=== PATIENT | female | born 1980 | race Caucasian/White ===

== ENCOUNTER → 2018-01-11 09:44 | Outpatient (CLI) | payer MEDICAID, SELFPAY ==
--- NOTE | 2018-01-11 09:46 | RAD_ITS ---
STUDY: X-RAY - LEFT KNEE REASON FOR EXAM: Knee pain, no specific injury. TECHNIQUE: 5 view(s) of the knee. COMPARISON: None. FINDINGS: Normal visualized distal femur. Normal visualized proximal tibia and fibula. Normal proximal tibiofibular articulation. Normal medial femorotibial compartment. Normal lateral femorotibial compartment. Normal patellofemoral articulation. The soft tissue structures are unremarkable. RAD/Knee 4 or More Views IMPRESSION: Unremarkable x-ray examination of the left knee. Electronically Signed: Jenaro Alvarez MD at 10:10 EDT Tel , Service support ,
== END ==
PROVIDERS: Visit Provider Orthopaedic Surgery
DX: M25.562 Pain in left knee (principal)
CPT/HCPCS: 73564

== ENCOUNTER 2018-02-17 10:30 | Outpatient (RCR) | payer MEDICAID, SELFPAY ==
--- NOTE | 2018-01-12 11:55 | HP.PTEVAL_ITS ---
Patient's Visit Information MELCHOR ALCANTAR is a 37 year old F referred to Physical Therapy by Melissa Whittington DO with a diagnosis of LEFT KNEE OA -PF JOINT. Date of Evaluation: 01/12/18 Physical Therapist: Wale Villalobos PT, - Visit Plan Frequency: 2x /Week Duration: 4 Weeks Plan: Aquatic PT for ROM, strength quads/hams ,flexablity - Subjective Subjective: This 37 y/o female presents to physical therapy with left knee OA - PF joint. Patient has had knee pain for many years.Symptoms worse in past 2weeks ,then Patient [facility] to [facility] reommended ortho consult. Recommended Aquatic PT.Did x-rays showed OA.Patient has pain with walking,standing, one step at a time.Patient unable kneeling,squatting.Pain affects sleeping. Denies parathesia/tingling. Pain affects quality of life and function. SOCAIL: 4 children special needs. VOCATION: homemaker - Pain Left Knee Pain Intensity (Out of 10): 6 Pain Intensity Range: 10 - Objective POSTURE: left knee flexed , valgus knee.genu recurvatum. GAIT: ambulates with decrease stance time swing phase during gait cycle. NEURO: denies parathesia/ tingling, reflexes inact. PALAPTION: medial joint line greater than lateral joint line. MMT:left 3+/5 quads,4-/5 ,hip flex/abd 3+/5,ankle 4/5,right 4/5 except hip 4-/5. AROM: LEFT flexion 20-52 degrees supine knee flexion,RIGHT 5- 120 degrees. FLEXABLITY: hams mod tight - Special Tests L Knee Mey - Meniscus: Positive L Knee Valgus - MCL: Positive L Knee Varus - LCL: Positive L Knee Patellar Apprehension - PFS: Positive L Knee Patellar Grind - PFS: Positive - Goals Goal 1:: Independant with Aquatic PT Goal Time Frame: 4-6 Weeks Goal 2:: Decrease knee pain by 40-50% to improve gait and function. Goal Time Frame: 4-6 Weeks Goal 3:: Patient to improve AROM knee 10-100 degrees or greater to improve function Goal Time Frame: 4-6 Weeks Goal 4:: Patient improve strength quads/hams 4-/5 to improve function Goal Time Frame: 4-6 Weeks Goal 5:: Patient improve quality of gait with swing phase stance time during gait cycle with less antalgic gait 80% of the time - Rehabilitation Potential Physical Therapy Diagnosis: This patient has left knee pain possible meniscus - patellofemoral dysfunction with pain poor ROM ,decrease strength ,impairs gait and walking thus benifit from skilled PT Rehabilitation Potential: Good - Anticipated Interventions Patient/Client Instruction: Educate patient on: Condition, Plan of Care For the Purpose of:: To decrease pain, To increase ROM, To improve muscle performance and motor function, To increase tolerance to activity/condition/ position, To improve ability of physical actions for home/community/work/leisure , To improve gait and locomotor functions, To improve health of tissue, To decrease soft tissue restriction, To increase flexibility/ROM, To improve ability to perform tasks related to life management Therapeutic Exercise to Include: Strength training, Flexibilty training, Gait and locomotor training, In an aquatic setting, Passive ROM, Active ROM For the Purpose of:: To decrease pain, To increase ROM, To improve muscle performance and motor function, To increase tolerance to activity/condition/ position, To improve ability of physical actions for home/community/work/leisure , To improve gait and locomotor functions, To improve health of tissue, To decrease soft tissue restriction, To increase flexibility/ROM, To improve ability to perform tasks related to life management Thank you for the opportunity to evaluate your patient. For Medicare and Medicare HMO plans, please review the plan of care and approve it. It will need to be FAXED BACK to us at [phone] for Medicare purposes. Please let me know if there are questions or concerns regarding this plan of care. Physician Signature: Date:
--- NOTE | 2018-02-17 10:57 | HP.PTDCSUM_ITS ---
HP - PT D/C Summary It has been my pleasure to treat MELCHOR Falcon VIA under orders from Melissa Whittington DO, for the diagnosis of LEFT KNEE OA -PF JOINT for a total of 8 visit(s). Discharge Date: Please see the following information for a summary of their discharge status. - Subjective Subjective: Doing alot better..Able to do stairs . Extended walking ,housework , difficulty with squatting,unable to kneeling. - Pain Left Knee Pain Intensity (Out of 10): 0 - Overall Improvement % Improvement: 90 - Objective Objective/Function: POSTURE: genu recurvatum ,knee valgus. GAIT: ambulates with normla ayanna. STAIR: ascend/descend 12 steps alternating. AROM: 0-110 supine knee flexion. MMT: quads/hams 5/5 ,hip 4/5 ankle 4/5 - Goals Goal 1:: Independant with Aquatic PT Goal 2:: Decrease knee pain by 40-50% to improve gait and function. Goal 3:: Patient to improve AROM knee 10-100 degrees or greater to improve function Goal 4:: Patient improve strength quads/hams 4-/5 to improve function Goal 5:: Patient improve quality of gait with swing phase stance time during gait cycle with less antalgic gait 80% of the time - Plan Plan: d/c - D/C Information If there are questions or concerns regarding this patient's physical therapy, please feel free to call me at [phone]. Thank you for the referral of this patient. Sincerely, Wale Villalobos, PT,
== END 2018-02-17 19:00 | disposition home or self-care (01) ==
LOC: PT 10:30
PROVIDERS: Visit Provider Orthopaedic Surgery
DX: M17.12 Unilateral primary osteoarthritis, left knee (principal)
CPT/HCPCS: 97113; 97162; 97530

== ENCOUNTER 2019-05-01 09:22 | Emergency (ER) | payer MEDICAID, SELFPAY ==
[2019-04-30 13:47] VITALS: BMI 61.4
[2019-05-01 09:23] VITALS: BP 156/85; PULSE 92; RESP 20; TEMP 36.1; O2SAT 98; BMI 62.8
[2019-05-01 09:41] VITALS: PULSE 84; RESP 20
[2019-05-01] MEDS: Albuterol 2.5 MG/3 ML VIAL.NEB. INHALATION (09:41)
[2019-05-01] MEDS: Ipratropium/Albuterol Sulfate 3 ML AMPUL.NEB INHALATION (09:41)
--- NOTE | 2019-05-01 09:59 | CPS ---
Albuterol tx given as well
--- NOTE | 2019-05-01 10:02 | RAD_ITS ---
STUDY: X-RAY CHEST REASON FOR EXAM: Female, 38 years old. Dyspnea. Chest tightness and cough. TECHNIQUE: PA and lateral views of the chest. COMPARISON: Comparison is made with prior study dated September 16, 2008. FINDINGS: The lungs are clear and expanded. There is no demonstrated pleural abnormality. There is mild cardiac enlargement. Normal mediastinum and waqas. Normal visualized pulmonary arteries. Normal visualized aortic arch and descending thoracic aorta. Normal visualized thoracic spine. Normal visualized ribs, clavicles, and shoulders. There is no demonstrated abnormality of the visualized soft tissue structures of the upper abdomen. RAD/Chest PA and Lateral IMPRESSION: Mild cardiomegaly. Electronically Signed: Anil Kimble, at 10:28 EDT , Service support ,
--- NOTE | 2019-05-01 10:17 | ED.VISSUMM ---
- ER Visit Summary Date of Service: 05/01/19 Chief Complaint: Dyspnea History of Present Illness: The patient is a 38 F who states that for the past 3 days she has had a cough. She developed dyspnea on exertion and at rest. She went to urgent care and was diagnosed with clinical pneumonia yesterday. She was started on albuterol Amoxil 5 twice daily and steroids. She was advised that if she did not get better to come to the emergency room. Less than 24 hours later she states she is feeling worse. She notes a subjective fever but states every time she is taken her temperature is been normal. Cough is nonproductive. She denies a history of smoking asthma or other lung conditions. Physical Examination: Afebrile vital signs are stable Gen: Well-nourished well-developed Head: Normocephalic atraumatic Eyes: Perrl EOMI ENT: TMs clear no rhinorrhea moist mucous membranes no stridor Neck: Supple no lymphadenopathy no JVD nontender CVS: Regular rate rhythm no murmurs normal S1-S2 Respiratory: No distress patient has expiratory wheeze and rhonchi bilaterally chest nontender Abdomen: Soft nontender nondistended normal bowel sounds no masses Back: Nontender Extremity: Nontender no edema Skin: Normal color no rash Neuro: alert orientated ?3 CN II-XII intact normal strength sensation reflexes gait cerebellar Psych: Normal affect normal mood Test Results: Chest x-ray showed no infiltrates. Emergency Department Course and Treatment: Patient received breathing treatments. She is ambulating the department. Pulse ox remained at 91%. Wheezing is improved. I am going to have the patient increase her prednisone to 60 mg a day. The prescription yesterday was written for an albuterol MDI 2 puffs every 6 hours with spacer. She states that she did not receive a spacer. The patient was instructed she may take 2 to 3 puffs every 2-3 hours using spacer. Patient notes understanding of her plan return if worsening or concerns Impression: 1. Acute bronchitis with bronchospasm This note was generated with [employer] dictation software. It may contain incorrect words, spelling, and punctuation that were not noted in review of the chart prior to signing ED Disposition - Plan for ED Patient: Disposition: Home or Assisted Living Instructions: BRONCHITIS with Wheezing (Adult) Prescriptions: Prednisone [Deltasone] 60 mg PO DAILY #9 tab Prescription Printed Referrals: Sophie Campbell MD [STAFF PHYSICIAN] - As Needed Additional Instructions: I would recommend you increase your prednisone to 60 mg a day (3 tablets/day) I would recommend you increase your albuterol MDI use to 2 to 3 puffs every 2 hours with spacer.
[2019-05-01 10:45] VITALS: O2SAT 98
[2019-05-01 11:50] VITALS: RESP 18
[2019-05-01 12:17] VITALS: RESP 20; O2SAT 98
== END 2019-05-01 12:19 | disposition home or self-care (01) ==
PROVIDERS: Emergency Provider Emergency Medicine
DX: J20.9 Acute bronchitis, unspecified (principal); J18.9 Pneumonia, unspecified organism; E66.9 Obesity, unspecified
CPT/HCPCS: 71046; 94640; 99282

== ENCOUNTER 2020-09-08 14:20 | Emergency (ER) | payer MEDICAID, SELFPAY ==
[2020-09-08 14:21] VITALS: BP 154/102; PULSE 85; RESP 16; TEMP 36.7; BMI 66.7
--- NOTE | 2020-09-08 14:39 | RAD_ITS ---
STUDY: X-RAY - LEFT KNEE REASON FOR EXAM: Female, 40 years old. INJURY TECHNIQUE: 4 views(s) of the knee. COMPARISON: None. FINDINGS: No evidence for acute fractures or dislocation. Spurring in the knee joint. Small knee joint effusion. Fibular head neck junction appears intact. IMPRESSION: Degenerative arthritis of the knee joint. No evidence for acute fractures. Electronically Signed: Alfonzo Roldan, at 15:42 EST Tel , Service support , RAD/Knee 4 or More Views
--- NOTE | 2020-09-08 14:39 | CT_ITS ---
STUDY: CT BRAIN WITHOUT CONTRAST REASON FOR EXAM: Female, 40 years old. Trauma and pain RADIATION DOSAGE (If Supplied By Facility): CTDIvol = ( 44.99 ) mGy, DLP = ( 779.24 ) mGycm TECHNIQUE: Transaxial CT imaging of the brain was performed without administration of intravenous contrast material. Individualized dose optimization techniques were used for this CT. COMPARISON: No relevant priors. FINDINGS: Normal soft tissue structures. Normal calvarium. Normal size ventricles and extra-axial spaces for the patient''s age. Normal white matter tracts of the cerebral hemispheres. Normal basal ganglia and thalami. Normal brainstem. Normal cerebellum. There is no intracranial hemorrhage. There are no findings of an acute ischemic infarction. Mucous retention cyst in the maxillary sinuses. CT/Brain/Head without Contrast IMPRESSION: No acute intracranial findings. Electronically Signed: Alfonzo Roldan, at 15:08 EST Tel , Service support ,
--- NOTE | 2020-09-08 14:39 | EKG12_ITS ---
Test Reason : SYNCOPE Blood Pressure : / mmHG Vent. Rate : 084 BPM Atrial Rate : 084 BPM P-R Int : 178 ms QRS Dur : 092 ms QT Int : 382 ms P-R-T Axes : 045 034 040 degrees QTc Int : 451 ms Normal sinus rhythm Normal ECG Confirmed by ROSALVA JUAREZ, JEREMIAH ([id number]), editor publications MUNIRA SCHUMACHER ([id number]) on 09/11/2020 9:35:23 AM Referred By: GIO/CHRISTIAN Confirmed By:JEREMIAH BLACKWELL MD
--- NOTE | 2020-09-08 14:39 | RAD_ITS ---
STUDY: X-RAY - LEFT RADIUS AND ULNA REASON FOR EXAM: Female, 40 years old. INJURY TECHNIQUE: 2 view(s) of the forearm. COMPARISON: None. FINDINGS: 2 views of the left forearm demonstrate no evidence for acute fractures or dislocation. The radiologists and the elbow appear intact. IMPRESSION: No evidence for acute radial or ulnar fractures Electronically Signed: Alfonzo Roldan, at 15:37 EST Tel , Service support , RAD/Forearm 2 Views
--- NOTE | 2020-09-08 14:39 | RAD_ITS ---
STUDY: X-RAY CHEST REASON FOR EXAM: Female, 40 years old. SYNCOPE TECHNIQUE: 2 views of the chest was obtained COMPARISON: None. FINDINGS: No consolidative process, pleural effusion or pneumothorax. Cardiac size slightly prominent. Degenerative changes of the thoracic spine with mild wedging of the thoracic vertebrae. IMPRESSION: Minimal pulmonary congestion. No consolidative process or pneumothorax Electronically Signed: Alfonzo Roldan, at 15:34 EST Tel , Service support , RAD/Chest PA and Lateral
--- NOTE | 2020-09-08 14:41 | ED.VIS.GEN ---
History of Present Illness Chief Complaint: Syncope Informant: Patient Narrative: 40-year-old female states that at [address] was on her way to the bathroom to vomit due to her acid reflux. She states she does not remember falling but her heard her fall and the next thing she remembers is waking up against the wall. She notes pain to the left side of her face and a bruised lower left lip. She notes pain to the left wrist and hematoma to the left forearm. She also notes left knee pain. After the fall she got back into bed slept took some Aleve slept some more and now presents the emergency department for evaluation. - Past Medical History (1) Obesity Status: Acute Past Medical History - Allergies and Home Meds Allergies/Adverse Reactions: Allergies guaifenesin [From Robitussin] Adverse Reaction (Verified 09/08/20 14:21) Unknown morphine Adverse Reaction (Verified 09/08/20 14:21) Upset Stomach Primary Care Physician: Care Physician,No Primary [Primary Care Provider] - Prior records reviewed: Yes Surgical History: noncontributory Lives: Spouse/ Significant Other, With Family Smoking Status: Never smoker Drugs: None Review of Systems General: Denies: Chills, Fever, Sweats Eyes: Denies: Visual changes - bilaterally, Diplopia ENT: Reports: - - Left facial pain. Denies: Rhinorrhea, Sore throat Cardiovascular: Denies: Chest pain, Palpitations Respiratory: Denies: Dyspnea, Cough, Dyspnea on exertion Gastrointestinal: Denies: Abdominal pain, Nausea, Vomiting, Diarrhea, Melena, Hematochezia Genitourinary: Denies: Dysuria, Hematuria, Frequency Musculoskeletal: Reports: Extremity Pain. Denies: Back pain Skin: Denies: Rash, Wounds Neurological: Denies: Headache, Weakness, Numbness Physical Exam Vital Signs/Narrative: Vital Signs Temp Pulse Resp BP 09/08/20 14:21 98.0 F 85 16 154/102 H Inital Vital Signs reviewed: Yes General: Well nourished, Well developed, Obese, No Acute Distress Head: Normocephalic, - - There is a contusion to the left cheek. There is a small contusion to the left lower lip. Eyes: Perrl, EOMI ENT: Moist mucous membranes, No rhinorrhea, - - No dental trauma. No malocclusion. No tenderness along the mandible. Neck: Supple, Nontender Cardiovascular: Regular rate, Regular rhythm, No murmurs Respiratory: No distress, CTA bilaterally, Chest nontender Abdomen: Soft, Nontender, Nondistended, Normal bowel sounds Back: Nontender, Normal Inspection Extremities: No edema, Tenderness - There is a small hematoma on the posterior left forearm. Tenderness at the left wrist. Tenderness about the left knee. Ligaments appear stable. Skin: Normal color, No rash Neurological: Alert, Oriented x3, Cranial nerves II-XII grossly intact, Normal Strength, Normal Sensation Psychological: Normal affect, Normal Mood Diagnostic/Tx/Re-eval Clinical Impression(s) from Imaging Studies Brain CT 09/08/20 14:39 IMPRESSION: No acute intracranial findings. Electronically Signed: Alfonzo Roldan, at 15:08 EST Tel , Service support , - EKG Initial EKG Interpretation: Sinus Rhythm - Normal sinus rhythm at a rate of 84 without ectopy or concerning features of ACS. - Medical Decision Making My interpretation of the plain films of the left knee, left forearm, and chest is no acute disease. Radiology agrees with no fractures. Patient's head CT is negative. Patient will be discharged home. Tylenol Motrin as needed for pain. I believe she most likely had a vagal reaction as she was headed to the bathroom to vomit. ED Disposition - Plan for ED Patient: Disposition: Home or Assisted Living Diagnosis: Syncope, Contusion of left wrist, Facial contusion, Contusion of left knee Instructions: ED Soft Tissue Contusion, ED Fainting, Vagal Reaction Referrals: Care Physician,No Primary [Primary Care Provider] - Additional Instructions: Follow-up with primary care as needed or if not improving.
[2020-09-08 15:31] VITALS: PULSE 88; RESP 17; O2SAT 94
== END 2020-09-08 15:33 | disposition home or self-care (01) ==
LOC: ED 15:13
PROVIDERS: Emergency Provider Emergency Medicine
DX: R55 Syncope and collapse (principal); S00.83XA Contusion of other part of head, initial encounter; S50.12XA Contusion of left forearm, initial encounter; S60.212A Contusion of left wrist, initial encounter; S80.02XA Contusion of left knee, initial encounter; S00.531A Contusion of lip, initial encounter; W19.XXXA Unspecified fall, initial encounter; Y93.9 Activity, unspecified; Y92.9 Unspecified place or not applicable; E66.9 Obesity, unspecified
CPT/HCPCS: 70450; 71046; 73090; 73564; 93005; 99282

== ENCOUNTER 2021-12-06 17:00 | Emergency (ER) | payer MEDICAID, SELFPAY ==
[2021-12-06 17:00] VITALS: BP 186/98; PULSE 89; RESP 18; TEMP 36.6; O2SAT 97; BMI 67.3
--- NOTE | 2021-12-06 17:15 | EDS_ITS ---
HPI History of Present Illness Chief Complaint: Dental Informant: patient Onset/Context/Timing Onset: Yesterday Context: Gradual Onset Timing: Continuous Quality: Throbbing Location: Right mandibular Current Severity: Severe Maximum Severity: Severe Worsened by: Eating, cold Relieved by: - (Nothing, try Tylenol and ibuprofen and topical dental anesthesia) Associated Symptoms Assocated Symptom - Dental: Negative for fever, jaw swelling or face swelling Narrative Narrative: Patient with a tooth ache that started yesterday, she states it has been bothering her for years but when she went to the dentist for the first time during the pandemic, they would not take care of it because of the pandemic. She went back last month when it was bothering her she was prescribed amoxicillin for 7 days, this took care of the pain and after 1.5-2 weeks of being off of it it is now recurrent. She states she was told she needs a root canal and they are planning on doing that but she cannot get back in until January for it. [facility] Medical History (Updated 12/06/21 @ 17:[address] Koby Mann MD) Back pain Knee pain Home Medications amoxicillin 500 mg PO TID #30 tab 12/06/21 [Rx Last Taken Unknown] tramadol 50 mg PO Q4H PRN PRN 2 Days #12 tab 12/06/21 [Rx Last Taken Unknown] Allergy/AdvReac Type Severity Reaction Status Date / Time guaifenesin [From Robitussin] AdvReac Unknown Verified 12/06/21 17:02 morphine AdvReac Upset Verified 12/06/21 17:02 Stomach Family History Mother Hypertension Diabetes Father Cancer Surgical History H/O bilateral breast reduction surgery History of cholecystectomy Hx of section Social History Smoking Status: Never smoker alcohol intake: never ROS ROS ED Constitutional Constitutional ED: Denies chills or fever(s) Eyes Eyes: Denies change in vision or double vision ENT ENT ED: Reports dental pain; Denies sinus pain or throat swelling Cardiovascular Cardiovascular: Denies chest pain or palpitations Respiratory/Chest Respiratory/Chest: Denies cough or dyspnea Integumentary Denies abscess or rash Neurologic Neurologic: Denies headache(s), paresthesias or weakness EXAM Physical Exam Const Vital Signs: 12/06/21 17:00 Temperature 97.8 F Temperature Source Temporal Pulse Rate 89 Respiratory Rate 18 Blood Pressure 186/98 H Blood Pressure Mean 127 Pulse Ox 97 Oxygen Delivery Method Room Air Positive well nourished, well developed and obese General Appearance ED: well developed and NAD Nutritional Appearance: obese HEENT HEENT Narrative: Tooth #29 with several small fillings within them, very tender to palpation, gingiva external to the tooth at the base of it is erythematous and very tender without any palpable abscess or pointing. No trismus. Floor mouth is soft nondistended nontender. Tongue is normal. No stridor. No discharge or bleeding. External face nontender without any objective swelling/asymmetry. Face and Sinus: sinuses nontender Throat: posterior oropharynx normal Eyes PERRL and EOMs intact bilaterally Neck no lymphadenopathy and supple Resp normal respiratory effort Neuro oriented x3 and CN's II-XII intact bilaterally Sensorium / Orientation: alert Gait (Neuro): normal gait Psych mental status grossly normal and thought process normal Skin no rashes or lesions noted and no wounds MDM MDM MDM Narrative Medical decision making narrative: Appears to be an early dental infection without an abscess. Sent amoxicillin work before and she has been off of it for most 2 weeks, it would be reasonable to prescribe another round, in addition to some analgesics that she is requesting. Tramadol given here. Discharge Plan Triage Chief Complaint: Dental ED Provider: Koby Mann Dx/Rx/DC Orders Clinical Impression: Infected dental caries Instructions: ED Dental Cavity Prescriptions: New tramadol 50 MG tablet 50 mg PO Q4H PRN PRN (Reason: Pain) 2 Days Qty: 12 RF: 0 amoxicillin 500 MG tablet 500 mg PO TID Qty: 30 RF: 0 Primary Care Provider: Care Physician,No Primary Referrals: Care Physician,No Primary [Primary Care Provider] - Dentist,Your [STAFF PHYSICIAN] - As soon as possible Disposition Disposition: Home, Self Care
[2021-12-06] MEDS: traMADol 50 MG Tablet 100 MG PO (17:18)
[2021-12-06] MEDS: AMOXICILLIN 500 MG CAPSULE PO (17:18)
[2021-12-06 17:20] VITALS: PULSE 74; RESP 16; O2SAT 98
== END 2021-12-06 17:23 | disposition home or self-care (01) ==
PROVIDERS: Emergency Provider Emergency Medicine; Visit Provider Emergency Medicine
DX: K04.7 Periapical abscess without sinus (principal); Z68.44 Body mass index [BMI] 60.0-69.9, adult; K02.9 Dental caries, unspecified; E66.9 Obesity, unspecified; Z98.811 Dental restoration status
CPT/HCPCS: 99282

== ENCOUNTER 2022-07-18 18:46 | Emergency (ER) | payer MEDICAID, SELFPAY ==
[2022-07-18 18:47] VITALS: BP 144/98; PULSE 82; RESP 16; TEMP 35.9; O2SAT 96; BMI 54.8
--- NOTE | 2022-07-18 19:06 | RAD_ITS ---
STUDY: X-RAY - LEFT WRIST REASON FOR EXAM: Female, 42 years old. Trauma. Fall from standing position. TECHNIQUE: 3 view(s) of the wrist were obtained. COMPARISON: Left forearm, 09/08/2020 FINDINGS: Normal visualized distal radius and ulna. Normal radiocarpal articulation. Normal distal radioulnar articulation. Normal carpal bones. Normal carpal articulations. Normal carpometacarpal articulation of the thumb. Normal second through fifth carpometacarpal articulations. Normal visualized metacarpal bones. The soft tissue structures are unremarkable. RAD/Wrist min 3 Views IMPRESSION: No acute fracture or dislocation. Electronically Signed: Rod Paul DO at 20:14 EDT ,
--- NOTE | 2022-07-18 19:06 | RAD_ITS ---
STUDY: X-RAY - LEFT SHOULDER REASON FOR EXAM: Female, 42 years old. Trauma. Fall from standing position. Shoulder pain. TECHNIQUE: 2 view(s) of the shoulder. COMPARISON: None. FINDINGS: Normal glenohumeral articulation. Normal acromioclavicular joint. Normal acromion. There is no acute fracture, dislocation or destructive osseous pathology. Normal humeral head and visualized proximal humerus. Minimal calcifications along the posterior aspect of the humeral head. Question calcified bursitis. The soft tissue structures are unremarkable. Normal visualized pulmonary apex. RAD/Shoulder min 2 Views IMPRESSION: No acute fracture or dislocation. Electronically Signed: Rod Paul DO at 20:25 EDT ,
--- NOTE | 2022-07-18 19:18 | RAD_ITS ---
STUDY: X-RAY - LEFT ANKLE REASON FOR EXAM: Female, 42 years old. Trauma. Fall from standing position. Ankle pain. TECHNIQUE: 3 view(s) of the ankle. COMPARISON: None. FINDINGS: Normal visualized distal tibia and fibula. Normal medial and lateral malleoli. Normal tibiotalar articulation and ankle mortise. Normal visualized talus. There is a plantar spur in otherwise normal calcaneus. The visualized subtalar, talonavicular, calcaneocuboid and tarsal articulations are normal. Diffuse soft tissue swelling. RAD/Ankle min 3 Views IMPRESSION: Soft tissue swelling without fracture or dislocation Electronically Signed: Rod Paul DO at 20:24 EDT ,
--- NOTE | 2022-07-18 21:01 | EX.ED.GENINJ ---
HPI History of Present Illness Chief Complaint: Fall Informant: patient Narrative Narrative: Patient tripped and fell in her bedroom. This was mechanical fall. She fell against a cinder block wall which is the outside wall of their house. She hit her left shoulder and then fell on her wrist. She denies hitting her head. She states her knees hurt a little bit but they always hurt and they are no different from baseline. She states her left ankle does hurt a little more than normal. But she is able to walk. She is not on any blood thinners. Rest makes this better and motion or palpation makes it worse. [facility] Medical History (Updated 07/18/22 @ 21:[address] Cristian Cuba MD) Back pain Knee pain Home Medications amoxicillin 500 mg tablet 500 mg PO TID #30 tabs 12/06/21 [Rx Last Taken Unknown] tramadol 50 mg tablet 50 mg PO Q4H PRN PRN Pain 2 days #12 tabs 12/06/21 [Rx Last Taken Unknown] naproxen 500 mg tablet 500 mg PO BID #14 tabs 07/18/22 [Rx Last Taken Unknown] Allergy/AdvReac Type Severity Reaction Status Date / Time guaifenesin [From Robitussin] AdvReac Unknown Verified 07/18/22 18:46 morphine AdvReac Upset Verified 07/18/22 18:46 Stomach Family History Mother Hypertension Diabetes Father Cancer Surgical History H/O bilateral breast reduction surgery History of cholecystectomy Hx of section Social History Smoking Status: Never smoker alcohol intake: never ROS ROS ED Eyes Eyes: Denies change in vision ENT ENT ED: Denies rhinorrhea Cardiovascular Cardiovascular: Denies chest pain or palpitations Respiratory/Chest Respiratory/Chest: Denies cough or dyspnea Gastrointestinal Gastrointestinal: Denies nausea or vomiting Genitourinary Genitourinary ED: Denies hematuria Musculoskeletal Musculoskeletal: Reports arthralgias; Denies back pain or neck pain Integumentary Denies Abrasions or rash Neurologic Neurologic: Denies paresthesias or weakness Endocrine Endocrinology: Denies polydipsia or polyuria Hematologic/Lymphatic Hematologic/Lymphatic: Denies easy bleeding or easy bruising Allergic/Immunologic Allergic/Immunologic ED: Denies urticaria EXAM Physical Exam Const Vital Signs: 07/18/22 18:47 Temperature 96.6 F L Temperature Source Temporal Pulse Rate 82 Respiratory Rate 16 Blood Pressure 144/98 H Blood Pressure Mean 113 Pulse Ox 96 Oxygen Delivery Method Room Air Positive well nourished and well developed General Appearance ED: well developed HEENT atraumatic; Negative for trauma or tenderness Eyes EOMs intact bilaterally Neck full ROM General: Negative for tenderness Chest Wall palpation of chest normal Resp normal respiratory effort and clear to auscultation bilaterally Cardio regular rhythm and no murmurs GI normal to inspection, nondistended, normoactive bowel sounds and non-tender Back/Spine normal to inspection and no thoracic nor lumbar tenderness Extremity Extremity Narrative: I do not see any deformity. There is some mild nonfocal tenderness around the left wrist and left shoulder area. Clavicle is nontender. Scapula is nontender. No bruising yet developed. Distal pulses and sensation are normal. She also has some mild nonfocal tenderness around the left ankle on both sides. No calcaneus tenderness. Achilles is intact. No deformities in any area. Neuro Sensorium / Orientation: alert Psych mental status grossly normal Skin no rashes or lesions noted and no wounds MDM MDM MDM Narrative Medical decision making narrative: X-ray showed no acute process. Ice rest elevation nonsteroidals should be appropriate. I will write for an ankle Aircast. Without fracture I think splinting upper extremity may lead to more stiffness than benefit. Radiography Diagnostic Testing: Clinical Impression(s) from Imaging Studies Shoulder X-Ray 07/18/22 19:06 IMPRESSION: No acute fracture or dislocation. Electronically Signed: Rod Paul DO at 20:25 EDT Reading Location ID and State: [employer] Tel [phone], Service support , Wrist X-Ray 07/18/22 19:06 IMPRESSION: No acute fracture or dislocation. Electronically Signed: Rod Paul DO at 20:14 EDT Reading Location ID and State: [employer] Tel [phone], Service support , Ankle X-Ray 07/18/22 19:18 IMPRESSION: Soft tissue swelling without fracture or dislocation Electronically Signed: Rod Paul DO at 20:24 EDT Reading Location ID and State: [address] [place] [address] Tel [phone], Service support , Three-view x-ray left ankle 3 view x-ray left wrist 2 view x-ray of left shoulder looked at by me and read by radiology shows no acute fracture. Discharge Plan Triage Chief Complaint: Fall ED Provider: Cristian Cuba Dx/Rx/DC Orders Clinical Impression: Fall at home, Contusion of left shoulder, Contusion of left wrist, Left ankle sprain Instructions: ED Contusion, Upper Extremity, ED Ankle Sprain (Adult) Prescriptions: New naproxen 500 mg tablet 500 mg PO BID Qty: 14 0RF No Action tramadol 50 MG tablet 50 mg PO Q4H PRN PRN (Reason: Pain) 2 Days Qty: 12 0RF amoxicillin 500 MG tablet 500 mg PO TID Qty: 30 0RF Primary Care Provider: Care Physician,No Primary Referrals: Colin Limon MD [Med Staff - Active Staff] - 1 Week if not improving Care Physician,No Primary [Primary Care Provider] - Disposition Disposition: Home, Self Care
== END 2022-07-18 21:13 | disposition home or self-care (01) ==
PROVIDERS: Emergency Provider Emergency Medicine; Visit Provider Emergency Medicine
DX: S40.012A Contusion of left shoulder, initial encounter (principal); S60.212A Contusion of left wrist, initial encounter; S93.402A Sprain of unspecified ligament of left ankle, initial encounter; W01.0XXA Fall on same level from slipping, tripping and stumbling without subsequent striking against object, initial encounter
CPT/HCPCS: 73030; 73110; 73610; 99283

== ENCOUNTER 2024-05-29 20:21 | Emergency (ER) | payer MEDICAID, SELFPAY ==
[2024-05-29 20:21] VITALS: BP 159/80; PULSE 61; RESP 16; TEMP 36.8; O2SAT 99; BMI 66.8
--- NOTE | 2024-05-29 23:37 | EX.ED.DYSGE1 ---
HPI History of Present Illness Chief Complaint: Dental Informant: patient and spouse/S.O. Narrative Narrative: Patient is a 44-year-old female with no significant past medical history. She reports that she has had 1 to 2 weeks of increasing left lower dental pain with no trauma. She states it was initially just an intermittent ache and now is a constant throb and worsens whenever she tries to eat or drink. She states she has a dentist appointment but is not for multiple weeks. She states she recently did a round of amoxicillin without any symptom improvement. Secondary to persistent pain she comes in for evaluation. [facility] Medical History (Updated 05/30/24 @ 01:[address] Jeffry Dupont, DO) Back pain Knee pain Home Medications ?Medication ?Instructions ?Recorded ?Last Taken ?Type amoxicillin 500 mg tablet 500 mg PO TID #30 tabs 12/06/21 Unknown Rx tramadol 50 mg tablet 50 mg PO Q4H PRN PRN Pain 2 days 12/06/21 Unknown Rx #12 tabs naproxen 500 mg tablet 500 mg PO BID #14 tabs 07/18/22 Unknown Rx clindamycin HCl 300 mg capsule 300 mg PO 4X/DAY #40 CAPSULES 05/29/24 Unknown Rx (Cleocin HCl) oxycodone-acetaminophen 5 mg-325 1 tab PO Q6H PRN pain 3 days #12 05/29/24 Unknown Rx mg tablet (Percocet) tabs Allergy/AdvReac Type Severity Reaction Status Date / Time guaifenesin (From Robitussin) AdvReac Unknown Verified 05/29/24 20:24 morphine AdvReac Upset Verified 05/29/24 20:24 Stomach Family History Mother Hypertension Diabetes Father Cancer Surgical History Hx of section H/O bilateral breast reduction surgery History of cholecystectomy Social History Smoking Status: Never smoker alcohol intake: never ROS ROS ED Constitutional Constitutional ED: Denies chills or fever(s) ENT ENT ED: Reports other Details: Positive dental pain ; Denies sore throat Cardiovascular Cardiovascular: Denies chest pain Respiratory/Chest Respiratory/Chest: Denies cough or dyspnea Gastrointestinal Gastrointestinal: Denies abdominal pain, diarrhea, nausea or vomiting Genitourinary Genitourinary ED: Denies dysuria Musculoskeletal Musculoskeletal: Denies myalgias or neck pain Integumentary Denies rash Neurologic Neurologic: Denies headache(s) Hematologic/Lymphatic Hematologic/Lymphatic: Denies easy bleeding or easy bruising Allergic/Immunologic Allergic/Immunologic ED: Denies mouth swelling or tongue swelling EXAM Physical Exam Const Vital Signs: 05/29/24 20:21 Temperature 98.2 F Temperature Source Temporal Pulse Rate 61 Respiratory Rate 16 Blood Pressure 159/80 H Blood Pressure Mean 106 Pulse Ox 99 Positive well nourished, well developed and obese General Appearance ED: well developed; Negative for pallor Nutritional Appearance: obese HEENT Reports moist mucous membranes HEENT Narrative: Dental caries are noted without obvious dental abscess present. No tongue or lip swelling no oral lesions no airway edema or compromise. No signs of ANUG. No signs of infection noted in the posterior pharynx. Eyes PERRL and EOMs intact bilaterally Neck supple Neck Narrative: No brawny edema in the submental space to suggest Ministerio's angina Resp normal respiratory effort and clear to auscultation bilaterally Cardio regular rate and regular rhythm Extremity normal to inspection Neuro oriented x3, CN's II-XII intact bilaterally and no sensory deficits noted Sensorium / Orientation: alert Motor Exam: strength 5/5 throughout Psych mental status grossly normal Skin no rashes or lesions noted Skin Narrative: Mild soft tissue swelling to the left cheek without overlying erythema or warmth or obvious signs of cellulitis or abscess General Skin Exam: Negative for jaundice or pallor MDM MDM MDM Narrative Medical decision making narrative: Patient arrived to the ER hypertensive but otherwise with stable vitals. History is concerning for developing dental abscess. There are no signs of ANUG she does not have any brawny edema to suggest Ministerio angina. Also there are no signs of posterior pharynx infection such as peritonsillar abscess or strep throat. At this time she has no airway edema or compromise and there are no findings concerning for systemic infection. Therefore do not feel there is need for imaging or workup and patient can have her antibiotic changed to clindamycin for broader spectrum of coverage and she was placed on Percocet for pain control. However without signs of systemic infection or respiratory distress there is no need for further workup and she is otherwise safe for discharge. History & Record Review Discussion w/independent historian: Patient and Significant other Discharge Plan Triage Chief Complaint: Dental ED Provider: Jeffry Dupont Dx/Rx/DC Orders Clinical Impression: Pain, dental, Dental infection, Morbid obesity Instructions: ED Dental Pain, ED Dental Abscess Prescriptions: New clindamycin HCl [Cleocin HCl] 300 mg capsule 300 mg PO 4X/DAY Qty: 40 0RF oxycodone-acetaminophen [Percocet] 5-325 mg tablet 1 tab PO Q6H PRN (Reason: pain) 3 Days Qty: 12 0RF No Action tramadol 50 MG tablet 50 mg PO Q4H PRN PRN (Reason: Pain) 2 Days Qty: 12 0RF amoxicillin 500 MG tablet 500 mg PO TID Qty: 30 0RF naproxen 500 mg tablet 500 mg PO BID Qty: 14 0RF Primary Care Provider: Care Physician,No Primary Referrals: Care Physician,No Primary [Primary Care Provider] - Activity Restrictions/Additional Instructions: Please follow-up with your dentist as I feel you may need a root canal in order to resolve your dental pain as it seems to stem from a deep line dental infection. Take the clindamycin as directed to help try and resolve this infection and return to the ER should you have any further concerns. Print Language: Chinese Disposition Disposition: Home, Self Care Discharge Date/Time: 05/30/24 00:04
[2024-05-29] MEDS: oxyCODONE 5 MG Tablet 10 MG PO (23:58)
[2024-05-29] MEDS: Clindamycin HCl 150 MG Capsule 300 MG PO (23:58)
== END 2024-05-30 00:04 | disposition home or self-care (01) ==
PROVIDERS: Emergency Provider Emergency Medicine; Visit Provider Emergency Medicine
DX: K04.7 Periapical abscess without sinus (principal); E66.01 Morbid (severe) obesity due to excess calories; K08.89 Other specified disorders of teeth and supporting structures
CPT/HCPCS: 99283

== ENCOUNTER 2024-06-02 07:48 | Emergency (ER) | payer MEDICAID, SELFPAY ==
[2024-06-02] VITALS (12 sets, daily range): BP systolic 138–179; BP diastolic 58–107; PULSE 59–75; RESP 13–20; TEMP 36.6–36.7; O2SAT 94–100; BMI 66.7
--- NOTE | 2024-06-02 08:08 | EDS_ITS ---
HPI History of Present Illness Chief Complaint: Dental Narrative Narrative: Patient is a 44-year-old female with no known significant past medical history does not follow with a physician on a regular basis who presented to the emergency department with chief complaint of dental infection. Patient states that on 05/29/2024 she was here and was diagnosed with a dental infection she states that she had been taking clindamycin as prescribed and noted that the pain has continuously worsened and the oxycodone does not touch the pain prompting her to come here for further evaluation management. Patient states that she did call the dentist and had an appointment for June she states that she called them yesterday and they moved up her appointment to Wednesday however the pain has become unbearable prompting her to come here for further evaluation management. [facility] Medical History (Updated 06/02/24 @ 16:[address] Hiram Harkins DO) Back pain Knee pain Home Medications ?Medication ?Instructions ?Recorded ?Last Taken ?Type amoxicillin 500 mg tablet 500 mg PO TID #30 tabs 12/06/21 Unknown Rx clindamycin HCl 300 mg capsule 300 mg PO 4X/DAY #40 CAPSULES 05/29/24 Unknown Rx (Cleocin HCl) oxycodone-acetaminophen 5 mg-325 1 tab PO Q6H PRN pain 3 days #12 05/29/24 Unknown Rx mg tablet (Percocet) tabs Allergy/AdvReac Type Severity Reaction Status Date / Time guaifenesin (From Robitussin) AdvReac Unknown Verified 06/02/24 08:25 morphine AdvReac Upset Verified 06/02/24 08:25 Stomach Family History Mother Hypertension Diabetes Father Cancer Surgical History Hx of section H/O bilateral breast reduction surgery History of cholecystectomy Social History Smoking Status: Never smoker alcohol intake: never ROS ROS ED ROS Narrative Constitutional: Complains of chills denies any fevers, headaches, lightheadedness, dizziness Eyes: Denies double vision blurry vision changes vision Ears, nose, throat: Complains of dental infection as noted above Cardiovascular: Denies chest pain or palpitations Respiratory: Denies coughing wheezing shortness of breath Abdomen: Denies abdominal pain nausea vomit diarrhea Neurological: Denies numbness, weakness and tingling Skin: Denies rashes or lesions EXAM Physical Exam Narrative Exam Narrative: General: Patient was sitting in bed did appear to be uncomfortable secondary to her dental pain Head: Atraumatic, normocephalic Eyes: Patient has significant swelling in the left portion of her face and along the left lower jawline no purulent drainage noted. No sublingual swelling noted PERRL bilaterally, EOMI bilateral, no conjunctival injection noted Neck: Soft, supple, trach midline, no concern for Ministerio's angina Cardiovascular: Regular rate and rhythm no murmurs gallops rubs noted Respiratory: Clear to auscultation bilaterally no rales rhonchi wheeze noted Extremities: +5/5 strength noted in the bilateral lower extremities Neurological: Patient following commands knew that she was at [facility] year is 2023 Skin: Warm, dry, intact Const Vital Signs: 06/02/24 07:49 06/02/24 09:48 06/02/24 11:00 Temperature 97.8 F Temperature Source Temporal Pulse Rate 75 62 72 Respiratory Rate 16 18 18 Blood Pressure 154/107 H 151/58 H 179/104 H Blood Pressure Mean 122 89 129 Pulse Ox 94 98 98 Oxygen Delivery Method Room Air Room Air Room Air Oxygen Flow Rate (L/min) 06/02/24 12:34 06/02/24 13:00 06/02/24 13:44 Temperature Temperature Source Pulse Rate 64 Respiratory Rate 20 H Blood Pressure 146/76 H Blood Pressure Mean 99 Pulse Ox 97 96 100 Oxygen Delivery Method Nasal Cannula Nasal Cannula Nasal Cannula Oxygen Flow Rate (L/min) 2 2 6 06/02/24 15:00 Temperature Temperature Source Pulse Rate 64 Respiratory Rate 13 Blood Pressure 146/98 H Blood Pressure Mean 114 Pulse Ox 100 Oxygen Delivery Method Nasal Cannula Oxygen Flow Rate (L/min) 6 MDM MDM MDM Narrative Medical decision making narrative: Patient is a 44-year-old female who presented to the emergency department chief complaint of dental infection that is worsening while on antibiotics and increasing pain. Patient will have a workup performed here on the differential diagnose includes but not limited to abscess, dental caries. Once workup is obtained reviewed she will be reevaluated. Patient be given Toradol and Zofran. Patient be given doses Unasyn. Patient's CBC was reviewed showed a white blood count of 12,000, hemoglobin is 12.3, platelet count normal at 264. Patient's sodium normal 138, potassium normal 4.1, creatinine normal at 0.88. Patient's urinalysis did not reveal any evidence of infection, test was negative. Patient's CT max face was reviewed and showed finding suggestive of cavity in the mandibular premolar tooth. Mild degree of mucosal thickening of the maxillary sinuses bilaterally. No evidence of bony destruction noted. Did discuss the case with on-call Dr. Burdick who states that he does not take care of these issues. I do believe the patient will require transfer as once again she is been on oral clindamycin for several days and has worsening pain and worsening swelling. I then called and attempted to transfer the patient to [facility] However they do not have any beds available. I then called [facility] and they state that they do not have any max face/dental coverage over the weekend therefore they cannot accept patient for transfer. I then discussed the case with [facility] maxillofacial surgeon Dr. Christensen who states that the patient can go to the emergency department is recommending a dose of steroids which she was given Decadron. Then discussed the case with ER physician Dr. Ross who states they will see the patient when she arrives. Does appear the patient is due for another dose of Unasyn therefore this will be ordered as well . Patient was notified that should be transferred to [facility] with all question concerns answered she is agreeable this plan. Lab Data Labs: Laboratory Results - last 24 hr 06/02/24 06/02/24 08:29 09:19 WBC 12.0 H RBC 4.47 Hgb 12.3 Hct 39.4 MCV 88.1 MCH 27.5 MCHC 31.2 L RDW Std Deviation 42.6 RDW Coeff of Erin 13.3 Plt Count 264 MPV 9.2 Immature Gran % (Auto) 0.400 Neut % (Auto) 73.1 H Lymph % (Auto) 17.6 L [place] % (Auto) 5.9 Eos % (Auto) 2.3 Baso % (Auto) 0.7 Absolute Neuts (auto) 8.7 H Absolute Lymphs (auto) 2.10 Nucleated RBC % 0 Sodium 138 Potassium 4.1 Chloride 103 Carbon Dioxide 32.0 Anion Gap 3 L BUN 9 Creatinine 0.88 Estim Creat Clear Calc 122.71 Est GFR (MDRD) Af Amer 89 Est GFR (MDRD) Non-Af 74 BUN/Creatinine Ratio 10.2 Glucose 151 H Calcium 9.8 Urine Color Yellow Urine Clarity Clear Urine pH 6.5 Ur Specific [place] 1.010 Urine Protein Negative Urine Glucose (UA) Normal Urine Ketones Negative Urine Occult Blood Negative Urine Nitrite Negative Urine Bilirubin Negative Urine Urobilinogen Normal Ur Leukocyte Esterase Negative Urine RBC 0 SEEN Urine WBC 0 SEEN Ur Squamous Epith Cells 0-5 SEEN Urine Bacteria 1+ Urine Mucus 0 SEEN Urine Test Negative Radiography Diagnostic Testing: Clinical Impression(s) from Imaging Studies Facial/Sinus 06/02/24 08:47 IMPRESSION: Findings suggestive of a cavity in the mandibular premolar tooth. Mild degree of mucosal thickening of the maxillary sinuses bilaterally. Electronically Signed: Anil Kimble MD at 9:02 EDT Reading Location ID and State: [address] [place] [id number] , Service support , Discharge Plan Triage Chief Complaint: Dental ED Provider: Hiram Harkins Dx/Rx/DC Orders Clinical Impression: Dental infection, Failure of outpatient treatment Prescriptions: No Action amoxicillin 500 MG tablet 500 mg PO TID Qty: 30 0RF clindamycin HCl [Cleocin HCl] 300 mg capsule 300 mg PO 4X/DAY Qty: 40 0RF oxycodone-acetaminophen [Percocet] 5-325 mg tablet 1 tab PO Q6H PRN (Reason: pain) 3 Days Qty: 12 0RF Primary Care Provider: Care Physician,No Primary Referrals: Care Physician,No Primary [Primary Care Provider] - Print Language: Filipino Disposition Disposition: DC/Tx to Another Type of HCF
[2024-06-02] MEDS: Ketorolac 30 MG/ML Syringe IV (08:24)
[2024-06-02] MEDS: 0.9% Normal Saline (1000mL) 1,000 ML 999 ML IV (08:24)
[2024-06-02 08:41] LABS: Absolute Neutrophil Count 8.7 X10^3/uL (2.0-7.7); Basophil# 0.08 X10^3/uL; Basophil% 0.7 % (0-1); Eosinophil# 0.28 X10^3/uL; Eosinophils% 2.3 % (0-5); Hematocrit 39.4 % (37-47); Hemoglobin 12.3 g/dL (12.0-15.0); Lymphocyte % 17.6 % (19-41); Mean Corp Hgb Conc 31.2 g/dL (32-36); Mean Corpuscular Hgb 27.5 pg (27.0-32.0); Mean Corpuscular Volume 88.1 fL (81-99); Mean Platelet Vol. 9.2 fl (6.2-12.0); Monocyte# 0.71 X10^3/uL; Monocyte% 5.9 % (0-10); NRBC Flagged by Analyzer 0 % (0-5); Neutrophil # 8.73 X10^3/uL (2.7-7.7); Neutrophil % 73.1 % (47-70); Platelet Count 264 K/mm3 (150-450); RBC Distribution Width CV 13.3 % (11.6-14.6); RBC Distribution Width SD 42.6 fl (35.1-43.9); Red Blood Count 4.47 M/mm3 (4.2-5.4)
[2024-06-02] MEDS: Ampicillin/Sulbactam 3 GM in 0.9% Normal Saline (100mL MB+) 100 ML IV ×2 (08:41→16:33)
--- NOTE | 2024-06-02 08:47 | CT_ITS ---
STUDY: CT FACIAL BONES WITH CONTRAST REASON FOR EXAM: Female, 44 years old. Left lower dental infection RADIATION DOSAGE (If Supplied By Facility): CTDIvol = ( 29.38 ) mGy, DLP = ( 657.65 ) mGycm TECHNIQUE: The patient was scanned in a multi detector CT scanner. Transaxial imaging was performed following the intravenous administration of IV 100mL Isovue-300. Sagittal and coronal images were reconstructed. Individualized dose optimization techniques were used for this CT. COMPARISON: None. FINDINGS: Mild lucencies seen within the region of a left mandibular premolar tooth suggestive of possible cavity. No evidence of bony destruction. Normal soft tissue structures. Normal orbital hollis and orbital contents. Normal nasal bones and anterior nasal spine. Normal facial bones. There is no demonstrated fracture. Minimal mucosal thickening of the maxillary sinuses bilaterally. CT/Sinus/Facial Bone WITH Contras IMPRESSION: Findings suggestive of a cavity in the mandibular premolar tooth. Mild degree of mucosal thickening of the maxillary sinuses bilaterally. Electronically Signed: Anil Kimble MD at 9:02 EDT ,
[2024-06-02 09:00] LABS: Anion Gap 3 (5-15); BUN 9 mg/dL (7-18); BUN/Creat Ratio 10.2 RATIO (10-20); Calcium,Total 9.8 mg/dL (8.5-10.1); Chloride 103 mmol/L (98-107); Creatinine, Serum 0.88 mg/dL (0.55-1.02); EST Glomerular Filtration Rate 74 mL/min (>60); Est Glom Filt Rate - Afr Amer 89 mL/min (>60); Estimated Creatinine Clearance 122.71 ml/min; Glucose 151 mg/dL (74-106); Potassium 4.1 mmol/L (3.5-5.1); Sodium Level 138 mmol/L (136-145)
[2024-06-02 09:24] LABS: Mucous, Urine 0 SEEN /hpf (<or=2+); Red Blood Cells-Urine 0 SEEN /hpf (0-5); White Blood Cells 0 SEEN /hpf (0-5)
[2024-06-02 09:27] LABS: Color, Urine Yellow (Yellow); Glucose, Dipstick Normal (Normal); Ketone-Dipstick Negative (Negative); Leukocyte Esterase-Dipstick Negative /ul (Negative); Nitrite-Dipstick Negative (Negative); Occult Blood-Urine Negative /ul (Negative); Protein-Dipstick Negative (Negative); Urine Bilirubin Dipstick Negative (Negative); Urine Clarity Clear (Clear); Urine Urobilinogen Normal (Normal); Urine pH 6.5 (5.0 - 8.0)
[2024-06-02 09:41] LABS: Bacteria 1+ /hpf (None Seen); Squamous Epithelial Cells - UA 0-5 SEEN /hpf (5-10)
[2024-06-02 09:43] LABS: Internal QC Validated? YES +Cl - CLEAR BKGD; Pregnancy, Urine Negative Negative
--- NOTE | 2024-06-02 10:35 | NURSING ---
CALLED [facility] FOR TRANSFER
--- NOTE | 2024-06-02 10:42 | NURSING ---
CALLED [facility] FOR TRANSFER, FAXED FACESHEET AND CT RESULTS
[2024-06-02] MEDS: Morphine 4 MG/ML Syringe IV (10:55)
[2024-06-02] MEDS: Ondansetron 4 MG/2 ML Vial IV (10:55)
--- NOTE | 2024-06-02 11:50 | NURSING ---
CALLED [facility] ABOUT UPDATE. DOCTOR HAS BEEN SENT A PAGE, HE HASN'T RESPONDED YET
--- NOTE | 2024-06-02 13:45 | NURSING ---
CALLED [facility]
--- NOTE | 2024-06-02 15:13 | NURSING ---
CALLED [facility]. FAXED FACESHEET
--- NOTE | 2024-06-02 15:17 | ED.RN ---
This RN ambulated the patient because she had to go to the bathroom, patient was 85% on room air. MD blanc.
[2024-06-02] MEDS: Acetaminophen 500 MG Tablet 1000 MG PO (16:00)
--- NOTE | 2024-06-02 16:12 | NURSING ---
CALLED FOR UPDATE. TALKED TO JUSTEN REBOLLEDO, ORAL SURGEON, PAGED
--- NOTE | 2024-06-02 16:28 | NURSING ---
[facility] DR ALETHEA CORNELIUS NURSE TO NURSE [phone]
--- NOTE | 2024-06-02 16:29 | NURSING ---
CALLED [facility], ETA IS 3 TO 4 HOURS
[2024-06-02] MEDS: dexAMETHasone 10 MG/ML Vial IV (16:33)
--- NOTE | 2024-06-02 18:11 | ED.RN ---
REPORT CALLED TO [facility] AT [facility] AT [facility] BY THIS RN.
== END 2024-06-02 19:52 | disposition other institution (70) ==
PROVIDERS: Emergency Provider Emergency Medicine; Visit Provider Emergency Medicine
DX: K04.7 Periapical abscess without sinus (principal); Z90.49 Acquired absence of other specified parts of digestive tract
CPT/HCPCS: 70487; 80048; 81001; 81025; 85025; 87040; 96361; 96365; 96366; 96375; 99285; J7030; Q9967; A4216; J0295; J2405